=== PATIENT | male | born 1990 | race African-American/Black ===

== ENCOUNTER 2016-10-08 10:58 | Emergency (ER) | payer OTHER ==
[2016-10-08 11:14] VITALS: BP 141/76
[2016-10-08] MEDS ORDERED: DECADRON IM ONE (12:09)
--- NOTE | 2016-10-08 12:14 | PROVIDER DOCUMENTATION ---
HPI-EENT General - General Chief Complaint: Cold Symptoms Stated Complaint: FLU LIKE SX Time Seen by Provider: 10/08/16 12:05 Source: patient Allergies/Adverse Reactions: Patient Allergies Allergy/AdvReac Type Severity Reaction Status Date / Time No Known Allergies Allergy Verified 04/13/16 08:26 Home Medications: Home Medication List Medication Instructions Recorded Confirmed Last Taken Type Meloxicam [Mobic] 7.5 mg PO DAILY PRN PRN #15 tablet 04/13/16 Unknown Rx Amoxicillin [Amoxil] 500 mg PO BID #10 capsule 10/08/16 Unknown Rx Guaifenesin/D-Methorphan Hb/PE 1 each PO Q6-8H PRN PRN #14 tablet 10/08/16 Unknown Rx [Deconex Dmx Tablet] Montelukast Chew [Singulair] 5 mg PO DAILY #30 tablet 10/08/16 Unknown Rx - History of Present Illness-EENT General Nature of Presenting Problem: Pt presents today complaints of bilateral ear pain, sore throat, sinus pain and cough that began 3 days ago. He is unsure of fevers. No n/v/d. No respiratory distress. EENT Location: reports: ear (R), ear (L), nose, throat Quality of Pain: reports: aching Severity: reports: mild Onset/Duration: reports: 3 days ago Timing: reports: still present Prearrival Treatment: Initiated no prearrival treatment Associated Symptoms: reports: cough, facial pain/swelling, nasal congestion/ drainage, sinus infection Similar Symptoms Previously?: No Recently seen or treated by another doctor?: No Review of Systems - Adult - REVIEW OF SYSTEMS - ADULT Constitutional: reports: fatique. denies: chills, fever, night sweats Eyes: reports: no symptoms reported. denies: discharge, dry eyes Ears, Nose, Mouth & Throat: reports: ear pain, sinus problem, nose pain. denies : ear discharge Cardiovascular: reports: no symptoms reported. denies: chest pain, edema Respiratory: reports: cough. denies: chronic cough, pleurisy, shortness of breath Gastrointestinal: reports: no symptoms reported. denies: abdominal pain, hematemesis Genitourinary: reports: no symptoms reported. denies: dysuria, discharge Musculoskeletal: reports: muscle aches. denies: bone pain, back pain Integumentary: reports: no symptoms reported. denies: hives, hair loss Neurological: reports: no symptoms reported. denies: ataxia, dizziness/vertigo Psychiatric: reports: no symptoms reported Endocrine: reports: no symptoms reported Hematologic/Lymphatic: reports: no symptoms reported Allergic/Immunologic: reports: no symptoms reported All Other Systems: Reviewed and Negative Past History - Adult - PAST MEDICAL HISTORY-ADULT Review of Records: reports: Old Records Reviewed, Nursing Assessment Review, Medications Reviewed, Social history reviewed & non-contributory. Major Childhood Illnesses: reports: denies history Cardiovascular: reports: denies history Respiratory: reports: denies history Gastrointestinal: reports: denies history Obstetrical/Gynecological: reports: denies history Genitourinary: reports: denies history Musculoskeletal: reports: denies history Neurological: reports: denies history Endocrine/Immune: reports: denies history Other Conditions: reports: denies history - IMMUNIZATION STATUS Childhood Immunizations: See Nurse Assessment Flu Vaccine: See Nurse Assessment Physical Exam- EENT - Physical Exam EENT Initial Vital Signs Reviewed: Yes General Appearance: appears well, alert, no apparent distress Eye Exam: bilateral eye: normal inspection, PERRL, EOMI Ear Exam: bilateral ear: auricle normal, erythema, tenderness, TM red Nasal Exam: sinus tenderness Throat Exam: normal mouth inspection, pharynx tenderness. negative: tonsillar exudate, tonsillar swelling Neck: non-tender, full range of motion, supple, normal inspection. negative: limited range of motion, lymphadenopathy, meningismus Respiratory: chest non-tender, lungs clear, normal breath sounds, no pleuratic chest pain, no respiratory distress, no accessory muscle use Cardiovascular: normal peripheral pulses, regular rate, rhythm, no edema, no gallop, no JVD, no murmur Abdominal Exam: normal bowel sounds, non tender, soft Back Exam: normal inspection, no CVA tenderness, no vertebral tenderness Extremity: normal range of motion, non-tender, normal gait, normal inspection Integumentary: normal color, normal turgor, warm/dry Neurologic: grossly normal, no motor/sensory deficits. negative: facial droop, focal weakness, motor weakness, sensory deficit Progress - PLAN OF CARE/RESULTS Progress/Plan/Lab Results: Orders Category Date Time Status DIRECT STREP PL Stat Lab 10/08/16 11:[address] Stat Lab 10/08/16 11:15 Completed Dexamethasone [Decadron] Med 10/08/16 12:09 Discontinued 10 mg IM NOW ONE Laboratory Tests 10/08/16 10/08/16 11:15 11:15 Influenza A (Rapid) NEGATIVE Influenza B (Rapid) NEGATIVE Group A Strep Rapid NEGATIVE Vital Signs Temp Pulse Resp BP Pulse Ox 10/08/16 11:13 97.9 F 99 H 18 141/76 100 No Known Allergies Allergy (Verified 04/13/16 08:26) Meloxicam [Mobic] 7.5 mg PO DAILY PRN PRN #15 tablet 04/13/16 Amoxicillin [Amoxil] 500 mg PO BID #10 capsule 10/08/16 Guaifenesin/D-Methorphan Hb/PE [Deconex Dmx Tablet] 1 each PO Q6-8H PRN PRN #14 tablet 10/08/16 Montelukast Chew [Singulair] 5 mg PO DAILY #30 tablet 10/08/16 Laboratory 10/08/16 10/08/16 11:15 11:15 Influenza A (Rapid) NEGATIVE Influenza B (Rapid) NEGATIVE Group A Strep Rapid NEGATIVE Departure - Departure Time of Disposition Order: 12:10 DIAGNOSIS: Otitis media Qualifiers: Otitis media type: in diseases classified elsewhere Laterality: left Qualified Code(s): H67.2 - Otitis media in diseases classified elsewhere, left ear Pharyngitis Qualifiers: Pharyngitis/tonsillitis etiology: unspecified etiology Qualified Code(s): J02.9 - Acute pharyngitis, unspecified Disposition: HOME 01 Certified Medical Emergency: Urgent Condition: Good Additional Instructions: Take medication as prescribed. Rest and stay well hydrated. ED Follow Up Instructions: You have been treated by a care provider in the Emergency Department. These instructions are being provided to you so you can have an understanding of how to care for yourself upon discharge. Upon discharge from the Emergency Department, you are responsible for making arrangements for follow-up care by a physician of your choice. Take all prescribed medications as directed. Return to the Emergency Department immediately for any new or worsening symptoms. You may call the Physician Referral phone number at [phone] to obtain a list of Physicians who are taking new patients. Prescriptions: Amoxicillin [Amoxil] 500 mg PO BID #10 capsule Guaifenesin/D-Methorphan Hb/PE [Deconex Dmx Tablet] 1 each PO Q6-8H PRN PRN #14 tablet PRN Reason: Cough and congestion Montelukast Chew [Singulair] 5 mg PO DAILY #30 tablet Attestation - Physician/ SHALINI Attestation Patient care was provided by Advanced Practice Provider:: Yes Advanced Practice Provider:: Rory Salazar Advanced Practice Provider documentation review:: The Mid-level provider documentation, treatment plan and medical decision making was reviewed by the physician who agrees with all treatment and medical decision making by the MLP.
== END 2016-10-08 12:35 | disposition home or self-care (01) ==
LOC: P.ED 10:58
DX: H67.2 Otitis media in diseases classified elsewhere, left ear (principal); J02.9 Acute pharyngitis, unspecified; H92.03 Otalgia, bilateral; R53.83 Other fatigue; R05 Cough; R09.81 Nasal congestion; M79.1 Myalgia; J34.89 Other specified disorders of nose and nasal sinuses
CPT/HCPCS: 87081; 87430; 87804; 96372

== ENCOUNTER 2019-01-28 22:18 | Observation (INO) ==
[2019-01-29] MEDS ORDERED: NS 1,000 ML IV ONE (00:25)
[2019-01-29 00:41] LABS: BASO# 0.01 X1000 (0.0-0.2); BASO% 0.1 % (0.0-0.8); EOS# 0.06 X1000 (0.0-0.7); EOS% 0.9 % (0.0-10.0); HEMATOCRIT 41.2 % (42.0-52.0); HEMOGLOBIN 14.4 g/dL (14.0-18.0); IMM GRAN# 0.01 X1000 (0.0-0.04); IMM GRAN% 0.1 % (0.0-0.5); LYMPH# 2.54 X1000 (1.2-3.4); LYMPH% 37.6 % (20.5-51.1); MCH 26.2 PG (27-31); MONO# 0.52 X1000 (0.11-0.59); MONO% 7.7 % (1.7-9.3); NEUT# 3.62 X1000 (1.4-6.5); NEUT% 53.6 % (42.2-75.2); PLT 258 X1000 (130-400); RBC 5.49 XMIL (4.7-6.1); RDW 14.5 % (11.5-14.5); WBC 6.76 X1000 (4.8-10.8)
[2019-01-29 01:04] LABS: OCCULT BLOOD 1 POSITIVE (NEGATIVE)
[2019-01-29 01:47] LABS: INR 0.88; PROTIME 12.4 Seconds (11.0-16.0); PTT 33.7 Seconds (22.3-41.8)
[2019-01-29 01:50] LABS: AGAP 15; ALBUMIN 4.8 g/dL (3.5-5.0); ALKALINE PHOSPHATASE 98 U/L (32-122); BUN 10 mg/dL (8-22); CALCIUM 8.8 mg/dL (8.8-10.2); CHLORIDE 107 mmol/L (98-107); COSMO 283; CREATININE 0.8 mg/dL (0.7-1.2); ESTIMATED GFR > 60; GLUCOSE 115 mg/dL (70-104); GOT 25 U/L (10-34); GPT 15 U/L (10-44); POTASSIUM 4.2 mmol/L (3.5-5.1); SODIUM 142 mmol/L (136-145); TCO2 21 mmol/L (25-35); TOTAL PROTEIN 7.4 g/dL (6.3-8.3)
[2019-01-29 03:23] LABS: BILIRUBIN URINE NEGATIVE (NEGATIVE); BLOOD URINE NEGATIVE (NEGATIVE); CLARITY CLEAR (CLEAR); COLOR YELLOW; GLUCOSE URINE NEGATIVE (NEGATIVE); KETONE URINE NEGATIVE (NEGATIVE); LEUKOCYTES URINE NEGATIVE (NEGATIVE); NITRITE URINE NEGATIVE (NEGATIVE); PROTEIN URINE NEGATIVE (NEGATIVE); UROBILINOGEN URINE NORMAL
[2019-01-29 03:25] LABS: URINE BACTERIA NEGATIVE /HFP; URINE EPITHELIAL CELLS <10 /HPF (<10); URINE RBC <10 /HPF (<10); URINE SOURCE CLEAN CATCH; URINE WBC <10 /HPF (<10)
[2019-01-29 03:42] LABS: UR AMPHETAMINES QUAL NONE DETECTED (NONE DETECT); UR BARBITUATES QUAL NONE DETECTED (NONE DETECT); UR BENZODIAZEPIN QUAL NONE DETECTED (NONE DETECT); UR CANNABINOIDS QUAL PRESUMPTIVE POSITIVE (NONE DETECT); UR COCAINE QUAL NONE DETECTED (NONE DETECT); UR METHADONE QUAL NONE DETECTED (NONE DETECT); UR METHAMPHETAMINE QUAL NONE DETECTED (NONE DETECT); UR OPIATES QUAL NONE DETECTED (NONE DETECT); UR OXYCODONE QUAL NONE DETECTED (NONE DETECT); UR PCP QUAL NONE DETECTED (NONE DETECT); UR PROPOXYPHENE QUAL NONE DETECTED (NONE DETECT); UR TCA QUAL NONE DETECTED (NONE DETECT)
[2019-01-29 04:15] LABS: HEMATOCRIT 37.2 % (42.0-52.0); HEMOGLOBIN 12.9 g/dL (14.0-18.0)
--- NOTE | 2019-01-29 04:57 | PROVIDER DOCUMENTATION ---
This chart was entered by Lindsey Addison Scribe, acting as scribe for Berry Marrufo MD. HPI-Abdominal Pain/GI Problem - General Chief Complaint: Rectal Bleeding Stated Complaint: (UNSURE)-BLEEDING? Time Seen by Provider: 01/28/19 23:40 Source: patient Allergies/Adverse Reactions: Patient Allergies Allergy/AdvReac Type Severity Reaction Status Date / Time No Known Allergies Allergy Verified 06/16/17 08:15 Home Medications: Home Medication List Medication Instructions Recorded Confirmed Last Taken Type NK [No Home Medications] 01/28/19 01/28/19 Unknown History - History of Present Illness-ABD Nature of Presenting Problems: 28 yobm c/o rectal bleeding for several years intermittently. pt sts started at work today. pt also c/o body aches. pt denies drug use but sts drinks alcohol and smokes cigarettes. pt works at [employer]. has 3yo daughter. denies nvd, fever, and cp. denies rectal injury and foreign object entry. pt is poor historian. Review of Systems - Adult - REVIEW OF SYSTEMS - ADULT Constitutional: reports: no symptoms reported. denies: chills, fever Eyes: reports: no symptoms reported Ears, Nose, Mouth & Throat: reports: no symptoms reported Cardiovascular: reports: no symptoms reported. denies: chest pain, edema, palpitations Respiratory: reports: no symptoms reported Gastrointestinal: reports: see HPI, rectal bleeding. denies: diarrhea, nausea, vomiting Genitourinary: reports: no symptoms reported Musculoskeletal: reports: no symptoms reported Integumentary: reports: no symptoms reported Neurological: reports: no symptoms reported Psychiatric: reports: no symptoms reported Endocrine: reports: no symptoms reported Hematologic/Lymphatic: reports: no symptoms reported Allergic/Immunologic: reports: no symptoms reported All Other Systems: Reviewed and Negative Past History - Adult - PAST MEDICAL HISTORY-ADULT Review of Records: reports: Old Records Reviewed, Nursing Assessment Review, M edications Reviewed, Social history reviewed & non-contributory. Major Childhood Illnesses: reports: denies history Cardiovascular: reports: denies history Respiratory: reports: denies history Gastrointestinal: reports: denies history Obstetrical/Gynecological: reports: denies history Genitourinary: reports: denies history Musculoskeletal: reports: denies history Neurological: reports: denies history Endocrine/Immune: reports: denies history Other Conditions: reports: denies history - PRIOR SURGERIES/PROCEDURES Surgical/Procedure History: reports: none - IMMUNIZATION STATUS Childhood Immunizations: See Nurse Assessment Flu Vaccine: See Nurse Assessment - FAMILY HISTORY Family History: reviewed, not pertinent - SOCIAL HISTORY Smoking: cigarettes, greater than 1 pack/day Provider spent 3-5 mins advising pt. on dangers of tobacco.: Discussed manners to quit use, and f/u contacts for add'l counseling. Substance Use: alcohol Physical Exam-General - PHYSICAL EXAM-ADULT Initial Vital Signs Reviewed: Yes - CONSTITUTIONAL General Appearance: alert, mild distress - EYES Eyes: PERRL/EOMI, pink conjunctivae - HEAD, EARS, NOSE, MOUTH & THROAT HENMT: normocephalic/atraumatic, moist mucous membranes, normal ENT inspection - NECK Neck: non-tender, full range of motion, supple, normal inspection - RESPIRATORY Respiratory: chest non-tender, lungs clear, normal breath sounds - CARDIOVASCULAR Cardiovascular: normal peripheral pulses, regular rate, rhythm - GASTROINTESTINAL (ABDOMEN) Abdominal Exam: normal bowel sounds, non tender, soft - GENITOURINARY Rectal Exam: normal exam, normal rectal tone, hemorrhoids (external hemorrhoids 2cm in size and gross blood rectum. there's blood on bed pad and pt pants.), tenderness. negative: blood streaked stool, decreased tone - LYMPHATIC Lymphatic: no adenopathy - MUSCULOSKELETAL Back Exam: normal inspection, no CVA tenderness, no vertebral tenderness Extremity: normal range of motion, non-tender, normal inspection Peripheral Pulses: radial (R): 2+, radial (L): 2+ - SKIN Integumentary: normal color, normal turgor, warm/dry - NEUROLOGIC Neurologic: grossly normal, no motor/sensory deficits - PSYCHIATRIC Psych/Mental Status: normal mood/affect, normal thought content, normal thought process, oriented x 3 Progress - PLAN OF CARE/RESULTS Progress/Plan/Lab Results: Vital Signs - 8 hr 01/28/19 22:35 Temperature 98.5 F Pulse Rate 96 H Respiratory Rate 20 Blood Pressure 101/72 O2 Sat by Pulse Oximetry 98 Result Diagrams: 01/29/19 04:05 01/29/19 00:20 - REASSESSMENT Reassessment #1 Time Reassessed: 04:53 Status: worsening (sleeping, no c/o pain or distress. not ETOH and THC . note VS stable : 104/61, hr 69, rr 18, note drop in h/h hct 41.2 now 37.2.) - CONSULTS/PCP/HOSPITALIST Notification #1 *Consult/PCP/Hospitalist*: DR GUNTER Time Discussed: 04:56 Consult Disposition: Admit Departure - Departure Date of Disposition Decision: 01/29/19 Time of Disposition Decision: 04:56 DIAGNOSIS: ETOH abuse, Lower GI bleeding, External hemorrhoids Disposition: ADMITTED INPATIENT 09 Certified Medical Emergency: Emergent Condition: Stable Referrals and Follow-Ups: None,PCP [Primary Care Provider] - - Critical Care Note This patient required my direct & personal management of CC.: No Attestation - Physician/ SHALINI Attestation Patient care was provided by Advanced Practice Provider:: No The physician spent face to face time with patient:: Yes Advanced Practice Provider documentation review:: Supervising physician onsite and consulted in the evaluation and care of this patient. The physician did have a face to face encounter with the patient. This chart was documented by the indicated scribe, (Lindsey Addison Scribe) and accurately reflects the services I performed and decisions made by me, Berry Marrufo MD, as attested by the provider's signature.
[2019-01-29] MEDS ORDERED: ZOFRAN IV PRN (08:12)
[2019-01-29] MEDS ORDERED: NS 1,000 ML IV SCH (08:15)
[2019-01-29 09:58] LABS: HEMATOCRIT 36.9 % (42.0-52.0); HEMOGLOBIN 12.6 g/dL (14.0-18.0)
[2019-01-29 10:19] LABS: MAGNESIUM 2.1 mg/dL (1.5-2.7); POTASSIUM 4.4 mmol/L (3.5-5.1)
[2019-01-29 10:42] LABS: CK INDEX 0.8 (0.0-2.5); CK-MB 2.37 ng/mL (0.0-5.0)
--- NOTE | 2019-01-29 15:20 | CARDIOLOGY CONSULTATION ---
DATE: 01/29/2019 CHIEF COMPLAINT ON PRESENTATION: Bloody stool. HISTORY OF PRESENT ILLNESS: Mr. Baez is a 28-year-old black male with no past medical history who presents for evaluation of bloody stool that began yesterday. The patient reports that it was painless. The patient denies any illicit drugs but drinks alcohol on a regular basis as well as smoking tobacco and marijuana. His alcohol level on this presentation was 175. He denies any palpitations no syncope, no chest pain, no previous cardiac history. No medications at home. PAST MEDICAL HISTORY: None. SOCIAL HISTORY: Again smokes tobacco and marijuana. He uses alcohol on a regular basis. Works at [employer]. FAMILY HISTORY: Significant for hypertension. REVIEW OF SYSTEMS: A 10-system review of systems is negative except for those mentioned in HPI. PHYSICAL EXAMINATION: Vital Signs: The patient is afebrile. His heart rate is 62. His blood pressure is 103/60. His heart rates during this hospitalization have ranged from 62 to 96. His blood pressure is 103/60. General: He is in no acute distress. HEENT: Oropharynx is moist. Normal dentition. Eye examination is pink conjunctivae, white sclerae. Neck: Examination shows no obvious thyromegaly or thyroid tenderness. Cardiovascular: He sounds to be in a regular rate and rhythm. He has no murmurs. He has no S3. He has no lower extremity edema. Chest Exam: Clear bilaterally. He has no increased work of breathing. Abdomen: Soft, nontender, nondistended. He has no obvious organomegaly. Skin Exam: Warm and dry throughout without any rashes. Neurological: He is moving all extremities well. He has no lower extremity edema. PERTINENT DATA: He had an EKG that was reviewed by me that demonstrates sinus rhythm, normal WI interval, normal QRS interval. Unremarkable EKG. He had 3 separate episodes early this morning on telemetry between the hours of 8:25 and 8:48 where he had single P-waves that were not conducted. He has no x-ray data. His white count is 6.7. His hematocrit is 36.9. It was 41.2 on presentation. His platelet count is 258,000. His sodium is 142, potassium is 4.4, BUN 10, creatinine 0.8. His cardiac enzymes are negative. His TSH is normal. He had a positive marijuana screen and an alcohol level of 175. ASSESSMENT: Mr. Baez is a 28-year-old black male who presented with gastrointestinal bleed. PLAN: The patient does not have any significant arrhythmia to prevent him from having a GI evaluation. He is having asymptomatic P-waves that are not being conducted. I suspect this is from high vagal tone. He has a narrow QRS and a normal WI interval. His potassium is normal as is his magnesium. I would maintain the patient on telemetry and would recommend avoidance of any AV maximilian blocking agents. If we can be of further assistance with this patient, please do not hesitate to contact us. cc: MD Josue Khan MD MTDD
--- NOTE | 2019-01-29 15:43 | HISTORY AND PHYSICAL ---
PRIMARY CARE PROVIDER: None PSYCHIATRIST: None. CHIEF COMPLAINT: Bleeding from bottom. HISTORY OF PRESENT ILLNESS: Mr. Baez is a 28-year-old male who carries a past medical history of schizophrenia, frequent bronchitis, anemia and alcohol abuse. He reported to [facility] complaining of rectal bleeding for several years. Workup in the ED did have a heme-positive stool. However, his hemoglobin and hematocrit is currently stable. He was positive for cannabinoids and had a serum alcohol level of 175. He states he has not drank any alcohol since yesterday. He was unsure of how much. He usually combines beer and liquor and will drink whatever is available. He could not exactly remember what he drank yesterday. He denied any illicit drug. [facility] has spoken with GI they will see the patient today at [facility] and it was brought to our attention that the patient was dropping QRS. The patient is chest pain and symptomatic free at this time. We are going to go ahead and check a stat EKG as well as recheck his electrolytes as well as a CK profile and troponin level and continue to monitor him on telemetry. He denies any fever, chills, cough, chest pain, shortness of breath, palpitations, abdominal pain, dysuria. REVIEW OF SYSTEMS: Twelve-point review of systems complete and negative except for those mentioned in HPI. PAST MEDICAL HISTORY: 1. Schizophrenia. 2. Recurrent bronchitis. 3. Anemia. 4. Alcohol abuse. ALLERGIES: No known drug allergies. HOME MEDICATIONS: None. SOCIAL HISTORY: Patient lives in [place]. He is single. He is on disability secondary to his schizophrenia. However, he does not take any medications or see a psychiatrist for this. He denied any illicit drug use or tobacco use. However he is positive for marijuana. Prior H P shows that he has been smoking marijuana since the age of 17, was a 2 pack per day smoker. PHYSICAL EXAMINATION: VITAL SIGNS: Temperature is 98.2 degrees, heart rate 67, respirations 14, blood pressure 102/60, O2 is 100% on room air. GENERAL: Mr. lin is a sleepy 28-year-old male who is lying in the bed in no acute distress. Denying any dizziness, palpitations, or chest pain. HEENT: Atraumatic, normocephalic. PERRL. NECK: Supple, trachea midline. CARDIOVASCULAR: S1, S2 appreciated. No murmurs, gallops, rubs noted. RESPIRATORY: Lung sounds clear bilaterally. GI: Soft, nontender, nondistended. Positive bowel sounds four quadrants. DIGITAL/RECTAL EXAM: Appeared to be an external hemorrhoid. I did not appreciate any gross blood per rectum. However, he did have some old blood on his gown. Did not do an actual physical rectal exam. I will defer to GI doctors as the patient did not appear to be actively bleeding. SKIN: Warm dry and intact. NEUROLOGIC: The patient is sleepy, however, he does awaken to voice. He answers all questions and is oriented x3. DIAGNOSTIC DATA: None. Current only pending stat EKG. LABORATORY DATA: White count 6, hemoglobin and hematocrit initially 14 and 41, after fluid bolus 12 and 37, recheck is 12 and 36. INR 0.88. Chemistry: Sodium 142, potassium 4.2, BUN 10, creatinine 0.8 blood glucose is 115. Urinalysis was negative for bacteria. Occult stools positive. Tox screen- alcohol levels 175, cannabinoids was positive. ASSESSMENT AND PLAN: 1. Hemorrhoidal bleed that has appeared to stopped at this time. His hemoglobin and hematocrit is stable. He is to be assessed by gastroenterology. We will keep him NPO for now and continue IV fluid. 2. Question of second-degree heart block on telemetry strips, possibly a type 1 second-degree. We are currently awaiting the EKG. We will go ahead and check a stat magnesium and potassium as well as a troponin as well as cardiac enzymes. However, patient adamantly denies chest pain, dizziness, or palpitations. He seems to be symptomatic free. I do not have any old EKGs to compare. I will speak with Dr. Gio Salazar as well to go over telemetry strips as well as EKG when those have been performed. Possibly a combination of marijuana and alcohol. 3. Alcohol abuse. The patient will need further education on alcohol abstinence. 4. Schizophrenia, currently not taking any medications. 5. Anemia. The patient does report intermittent rectal bleeding for several years now. 6. Further recommendation to follow physician evaluation, laboratory and diagnostic data. Dictated by KERMIT Drew for Gabe Ren MD Addendum: Patient seen and examined by myself. Agree with KERMIT note. It reflects my assessment and plan. cc: MD Josue Bush MD Peter Johnson, MD Michael Kelso, MD MTDD
[2019-01-29 20:16] VITALS: BP 107/70
--- NOTE | 2019-01-29 20:43 | EKG Report ---
Test Performed on : 01/29/2019 10:26:03 AM Test Reason : ? second degree block Blood Pressure : / mmHG Vent. Rate : 054 BPM Atrial Rate : 054 BPM P-R Int : 180 ms QRS Dur : 100 ms QT Int : 434 ms P-R-T Axes : 062 085 076 degrees QTc Int : 411 ms Sinus bradycardia. with sinus arrhythmia. Otherwise normal ECG No previous ECGs available Confirmed by Nehemiah Grayson MD ([id number]) on 01/30/2019 12:28:44 PM
--- NOTE | 2019-01-30 19:44 | DISCHARGE SUMMARY ---
ADMISSION DATE: 01/29/2019 DISCHARGE DATE: 01/29/2019 DISCHARGE DIAGNOSIS: 1. Hemorrhoid bleed. 2. Question of second-degree heart block on telemetry strip. 3. Alcohol abuse. 4. Schizophrenia. 5. Anemia chronic disease . CONSULTATIONS: 1. GI Dr. Tolentino. 2. Dr. Gio Salazar from Cardiology. PROCEDURES: None. HOSPITAL COURSE: This is a 28-year-old male with past medical history of schizophrenia, bronchitis, anemia and alcohol abuse. Apparently he said that he has been having rectal bleeding for several years. The workup in the ED did show heme-positive stools however his hemoglobin and hematocrit was stable. He was positive for cannabinoids and serum alcohol 175. We were requested by ER staff to admit this patient. GI has been consulted and they said that they prefer to see this patient as an outpatient because he does require to have any procedure inpatient. Also Cardiology has been consulted for the finding in the EKG with apparently second- degree block and nothing needed to be done for this patient so this patient has been discharged in stable condition. DISCHARGE PHYSICAL EXAMINATION: Vitals: Temperature 98.2 degrees, heart rate 61, respiratory 16, blood pressure 107/70, O2 saturation 100% on room air. General: This is a 28-year-old male lying in bed in no acute distress. Cardiovascular: S1, S2 heard. No murmurs, gallops, rub. Regular rate and rhythm. Respiratory: Clear bilaterally to auscultation. No work of breathing or using accessory muscles. Abdomen: Soft, nontender to palpation. Bowel sounds present. No organomegaly. Extremities: No clubbing, cyanosis, or edema. Peripheral pulses present in both legs. Neurological: The patient alert, oriented x3, moves 4 extremities. DISCHARGE DISPOSITION: Home to self-care. FOLLOWUP: With Dr. Tolentino in a week. cc: MD Josue Bush MD MTDD
== END 2019-01-29 20:39 | disposition home or self-care (01) ==
LOC: P.ED 22:18 → INTOOBSV 01-29 07:32 → SUATTDRO 01-29 07:32 → 4N 01-29 07:32
PROVIDERS: ADMIT Emergency Medicine; ATTEND Internal Medicine
CPT/HCPCS: 80053; 80101; 80104; 80301; 80305; 80307; 80320; 80324; 80345; 80346; 80353; 80358; 80361; 80365; 81001; 82055; 82270; 82550; 82553; 83735; 83992; 84132; 84443; 84484; 85014; 85018; 85025; 85610; 85730; 86850; 86900; 86901; 93005; 93010; G0431; G0434; G0477; G0479; G0480; G6040; J7030